=== PATIENT | male | born 1975 | race Two or more races ===

== ENCOUNTER → 2016-09-20 | Outpatient (CLI) | payer BC ==
[2015-10-23 18:28] VITALS: BP 170/105
[~2016-09-20] MED LIST: CYCL10TA2 PO; IOHEXOL 180 MG/ML 10 ML VIAL. ONE; NYST1000 PO; PRED-220 PO; TRAM50TA PO; methylPREDNISolone ACETATE 40 MG/ML VIAL. ONE; methylPREDNISolone ACETATE 80 MG/ML VIAL. ONE
--- NOTE | 2016-09-21 04:48 | PAIN ---
DATE OF SERVICE: 09/20/2016 INITIAL CONSULTATION FOR PAIN CLINIC CHIEF COMPLAINT: Low back and left lower extremity pain. HISTORY OF PRESENT ILLNESS: This is a 40-year-old male who presents with a history of pain since 06/2016 when he hurt his back lifting weights and had the same pain, but it essentially went away after some physical therapy. The patient reports the pain has returned now over the past month or so. He has been on prednisone 10 mg a day for the last month, which does help decrease the pain, but is becoming less and less effective with time. The patient reports the pain is in the low back, left leg, mostly in the posterior gluteus, posterior thigh, posterior lower leg, but also in the lateral anterior thigh, lateral leg and lateral lower leg with foot numbness involving all the toes. It is constant, aching, cramping at night, sharp pain in the back and hip, constant, stabbing, throbbing, shooting, tingling with radiating pain to the left side and no radiation on the right side significantly, but some cramping in the right calf at night. The patient reports it awakes him from sleep at least 2 times a night, does not affect his bowel or bladder control or his ability to walk, does fatigue easily without any specific loss of function of his left leg. Again, he has been doing physical therapy currently and this helps to keep the leg and the back mobile and reports it did help, he thinks by about 50%. The patient's disability rating from 0-10, 10 being the worst, is a 2 with family and home responsibilities, 3 with recreation, 5 with social activity and occupation, 8 with sexual behavior, 3 with self-care and 0 with life support activities. The patient had MRI scan of the lumbar spine dated 08/24/2016 showing moderate sized left paracentral disk protrusion at L5-S1 causing left lateral recess narrowing with effacement of the left S1 nerve root and possible mild effacement of the undersurface of the exiting left L5 nerve root. The patient reports again significant fatigability, but no actual loss of motor function of the left leg. PAST MEDICAL HISTORY: Significant for sleep apnea, dizziness, obesity. PAST SURGICAL HISTORY: No previous surgeries. CURRENT MEDICATIONS: Include cyclobenzaprine, prednisone, tramadol and nystatin. ALLERGIES: The patient has no known drug allergies. FAMILY HISTORY: Significant for cancer and diabetes. SOCIAL HISTORY: The patient does not smoke. Drinks alcohol, maybe 2-3 times a year. He is single. Lives on his own currently and lives locally in [place], [place]. REVIEW OF SYSTEMS: Positive for those items mentioned in history of present illness. All systems reviewed and otherwise negative. It is complete, full and well documented on the patient's chart. PHYSICAL EXAMINATION: VITAL SIGNS: The patient's blood pressure is 129/89, pulse 96, respirations 18, temperature 98.2 degrees Fahrenheit, height is 6 feet 3 inches, weight is 360 pounds. GENERAL: The patient is awake, alert, oriented, appropriate, has a very pleasant demeanor. HEENT: Shows normocephalic, atraumatic. Extraocular movements are intact and symmetrical. Oral cavity, his mucous membranes are moist and pink. Dentition is intact. NECK: Shows anterior throat supple without palpable lymphadenopathy noted. Swallow reflex is symmetrical. CHEST: Shows normal on inspection. Breath sounds clear to auscultation bilaterally. HEART: Shows S1 and S2 clear. No murmurs are auscultated. ABDOMEN: Obese, soft, nontender, nondistended. No palpable organomegaly is noted. No rebound or guarding demonstrated. BACK: Shows spine grossly in the midline. Normal appearing thoracic kyphosis as well as lumbar lordotic curvature. The patient's lumbar musculature shows symmetrical with inspection, with palpation shows diffusely tender mostly in the lower lumbar distribution bilaterally, but only diffusely without radiation. No tenderness over the sacrum and sacroiliac regions over the spinous processes themselves. The patient shows good rotational motion of the lumbar spine, both laterally greater than 10 degrees right and left as well as extension greater than 10 degrees, forward flexion 45 degrees without significant tenderness or difficulty. LOWER EXTREMITIES: Show deep tendon reflexes at 2+ in the patellar and tendo calcaneus tendons are 1+ bilaterally. Motor exam is strong with 5/5 dorsiflexion, extension, quadriceps and hamstring flexion and equal. Peripheral pulses are 2+ posterior tibial and dorsalis pedis pulses. No peripheral edema is noted. No clubbing, no cyanosis. Lower extremities are warm and dry to touch, equal in color and appearance. Straight leg raise noted to be positive on the left at about 40 degrees and right side is negative. Gaenslen's and Yash's maneuvers are negative bilaterally for reproduction of pain. The patient is able to stand, stand on his toes without difficulty or loss of balance, is walking with a normal appearing gait without any assistive devices such as canes or walkers. IMPRESSION: 1. This is a 40-year-old male with a history of increased pain in the low back, left lower extremity in a radicular fashion. 2. MRI scan as noted. PLAN: Options were discussed with the patient including conservative medical management, physical therapies continued and interventional techniques. He would like to pursue interventional techniques as he feels he is doing well with physical therapy, but is not improving significantly past a certain baseline. We discussed a lumbar epidural steroid injection using description as well as anatomical models to describe the procedure. The risks were then discussed including, but not limited to bleeding, infection, possibility of epidural hematoma and subsequent neurological compromise, dural puncture, headaches, spinal cord and/or nerve damage, side effects of steroid medication and poor results regarding pain control. The patient understands and wishes to proceed. The patient will return to clinic in approximately 2 weeks for followup. He was counseled on his return appointment, activity level and side effects to be aware of. DIAGNOSIS: Lumbar radiculopathy with lumbar degenerative disk disease and lumbar herniated disk. PROCEDURES: Lumbar epidural steroid injection in a translaminar approach at the L5-S1 level using C-arm fluoroscopic guidance under sterile prep and drape using local anesthesia. MEDICATIONS INJECTED: 120 mg Depo-Medrol plus 10 mL of preservative-free normal saline and 2 mL of Isovue for contrast. CONDITION AT DISCHARGE: Stable. The patient tolerated the procedure well, had no complications. ELIUD COLLINS MD DR: [email or web address]/[email or web address] JOB#: [id number] / [id number]
== END | disposition home or self-care (01) ==
LOC: PNCL 12:47
PROVIDERS: ATTEND Anesthesiology
DX: M51.16 Intervertebral disc disorders with radiculopathy, lumbar region (principal); E66.9 Obesity, unspecified; Z83.3 Family history of diabetes mellitus
CPT/HCPCS: 62323; J1030; J1040